=== PATIENT | male | born 1945 | race Caucasian/White ===

== ENCOUNTER 2020-10-17 07:52 | Day surgery (SDC) | payer OTHER ==
[~2020-10-17 07:52] MED LIST: Lactated Ringers 1,000 ML IV SCH; Sodium Chloride 0.9% 10 ML SDV IV PRN; Sodium Chloride 0.9% 10 ML Syringe FLUSH PRN; Sodium Chloride 0.9% 2.5 ML Syringe FLUSH PRN
--- NOTE | 2020-10-17 09:32 | PCM.PREANE ---
Preanesthetic Assessment - Anesthesia/Transfusion/Family Hx Anesthesia History: Prior Anesthesia Without Reaction Family History of Anesthesia Reaction: No Transfusion History: No Prior Transfusion(s) - Review of Systems General: No Symptoms Pulmonary: No Symptoms Cardiovascular: No Symptoms Gastrointestinal: No Symptoms Neurological: No Symptoms Other: Reports: None - Physical Assessment NPO Status Date: 10/17/20 NPO Status Time: 00:01 Vital Signs: Last Vital Signs Temp 97.2 F 10/17/20 08:50 Pulse 63 10/17/20 08:50 Resp 15 10/17/20 08:50 BP 150/78 H 10/17/20 08:50 Pulse Ox 98 10/17/20 08:50 Height: 5 ft 10 in Weight: 246 lb ASA Class: 2 Mental Status: Alert & Oriented x3 Airway Class: Mallampati = 2 Dentition: Reports: Normal Dentition ROM/Head Extension: Full Lungs: Clear to Auscultation, Normal Respiratory Effort Cardiovascular: Regular Rate, Regular Rhythm - Lab Values: Laboratory Last Values SARS-CoV-2 RNA (ERIN) NEGATIVE (NEGATIVE) 10/17/20 08:00 - Allergies Allergies/Adverse Reactions: Allergies Allergy/AdvReac Type Severity Reaction Status Date / Time No Known Allergies Allergy Verified 10/11/20 12:10 - Anesthesia Plan Pre-Op Medication Ordered: None - Acknowledgements Anesthesia Type Planned: General Anesthesia Pt an Appropriate Candidate for the Planned Anesthesia: Yes Alternatives and Risks of Anesthesia Discussed w Pt/Guardian: Yes Pt/Guardian Understands and Agrees with Anesthesia Plan: Yes Additional Comments: npo obesity bmi 35 tob none etoh rare prostate CA s/p radical prostatectomy 2010 neck pain with mukul n/t/occ weakness no cv problems par no questions PreAnesthesia Questionnaire Other HEENT History: wears glasses, has upper permanent bridge Cardiovascular History: Reports: None Respiratory History: Reports: None Gastrointestinal History: Reports: Diverticulosis, GERD Genitourinary History: Reports: Prostate Disorder Other Genitourinary History: hx of prostate cancer Musculoskeletal History: Reports: Back Pain, Chronic, Fracture, Neck Pain, Chronic Other Musculoskeletal History: hx of fx left foot and right fibula Neurological History: Reports: None Psychiatric History: Reports: None Endocrine/Metabolic History: Reports: Obesity/BMI 30+ Hematologic History: Reports: None Immunologic History: Reports: None Oncologic (Cancer) History: Reports: Prostate Dermatologic History: Reports: None - Past Surgical History Head Surgeries/Procedures: Reports: None Cardiovascular Surgical History: Reports: None Respiratory Surgical History: Reports: None GI Surgical History: Reports: Appendectomy, Colonoscopy Male Surgical History: Reports: Prostatectomy Endocrine Surgical History: Reports: None Neurological Surgical History: Reports: None Musculoskeletal Surgical History: Reports: ORIF, Other (See Below) Other Musculoskeletal Surgeries/Procedures:: Left Hip: "[place] hip resurfacing", ORIF left foot- has plate and screws Oncologic Surgical History: Reports: Other (See Below) Other Oncologic Surgeries/Procedures: Prostatectomy Dermatological Surgical History: Reports: None - SUBSTANCE USE Tobacco Use Status *Q: Never Tobacco User Recreational Drug Use History: No - HOME MEDS Home Medications: Home Meds Bicalutamide [Casodex] 50 mg PO TID 03/08/15 [History] Megestrol Acetate 20 mg PO DAILY 03/08/15 [History] Leuprolide Acetate [Eligard] 1 injection SUBCUT ASDIRECTED 07/16/16 [History] Multivitamin [Multivitamins] 1 tab PO DAILY 07/16/16 [History] Orasal 5 ml PO TIDMEALS 10/11/20 [History] - CURRENT (IN HOUSE) MEDS Current Meds: Current Medications Lactated Ringer's (Ringers, Lactated) 1,000 mls @ 125 mls/hr IV ASDIRECTED SHELL Sodium Chloride (Sodium Chloride 0.9% 10 Ml Syringe) 10 ml FLUSH ASDIRECTED PRN PRN Reason: Keep Vein Open Sodium Chloride (Sodium Chloride 0.9% 2.5 Ml Syringe) 2.5 ml FLUSH ASDIRECTED PRN PRN Reason: Keep Vein Open Sodium Chloride (Sodium Chloride 0.9% 10 Ml Syringe) 10 ml FLUSH ASDIRECTED PRN PRN Reason: Keep Vein Open Sodium Chloride (Sodium Chloride 0.9% 2.5 Ml Syringe) 2.5 ml FLUSH ASDIRECTED PRN PRN Reason: Keep Vein Open Sodium Chloride (Sodium Chloride 0.9% 10 Ml Sdv) 10 ml IV ASDIRECTED PRN PRN Reason: IV Use
[2020-10-17] MEDS ORDERED: Propofol 200 MG/20 ML SDV ONE ×2 (09:42→10:36)
--- NOTE | 2020-10-17 10:58 | PCM.OPNOTE ---
- General Post-Op/Procedure Note Date of Surgery/Procedure: 10/17/20 Operative Procedure(s): Screening colonoscopy with polypectomy Findings: cecal, ascending colon, and rectal polyp. Diverticulosis of sigmoid colon Pre Op Diagnosis: History of diverticulosis Post-Op Diagnosis: Sigmoid diverticulosis, ascending colon polyp, cecal polyp, rectal polyp [place]est[place] [facility] [place] Surgeon: Kalyn Garcia Condition: Good
--- NOTE | 2020-10-17 11:10 | PCM.POSTAN ---
POST ANESTHESIA ASSESSMENT - MENTAL STATUS Mental Status: Alert (no anesthetic problems), Oriented - VITAL SIGNS Vital Signs: Last Vital Signs Temp 97.5 F 10/17/20 10:45 Pulse 62 10/17/20 11:00 Resp 15 10/17/20 11:00 BP 125/66 10/17/20 11:00 Pulse Ox 95 10/17/20 11:00 - RESPIRATORY Respiratory Status: Respiratory Rate WNL, Airway Patent, O2 Saturation Stable - CARDIOVASCULAR CV Status: Pulse Rate WNL, Blood Pressure Stable - GASTROINTESTINAL GI Status: No Symptoms - POST OP HYDRATION Hydration Status: Adequate & Stable
[2020-10-17 11:15] VITALS: BP 129/76; PULSE 58
--- NOTE | 2020-10-17 12:57 | PCM48HPAN ---
Post Anesthesia Note - EVALUATION WITHIN 48HRS OF ANESTHETIC Vital Signs in Normal Range: Yes Patient Participated in Evaluation: Yes Respiratory Function Stable: Yes Airway Patent: Yes Cardiovascular Function Stable: Yes Hydration Status Stable: Yes Pain Control Satisfactory: Yes Nausea and Vomiting Control Satisfactory: Yes Mental Status Recovered: Yes Vital Signs: Last Vital Signs Temp 97.2 F 10/17/20 11:07 Pulse 58 L 10/17/20 11:07 Resp 14 10/17/20 11:07 BP 129/76 10/17/20 11:07 Pulse Ox 97 10/17/20 11:07
--- NOTE | 2020-10-19 14:09 | OR ---
SURGEON: KALYN GARCIA MD DATE OF PROCEDURE: 10/17/2020 PREOPERATIVE DIAGNOSIS: Screening colonoscopy, history of diverticulosis. POSTOPERATIVE DIAGNOSES: 1. Ascending colon polyp. 2. Cecal polyp. 3. Rectal polyp. 4. Diverticulosis of the sigmoid colon. PROCEDURE PERFORMED: Screening colonoscopy with polypectomy. PRIMARY SURGEON: Kalyn Garcia MD. ANESTHESIA: MAC. INSTRUMENT USED: Olympus colonoscope. EXTENT OF EXAM: To the cecum. PREPARATION: Good. LIMITATIONS: None. INDICATIONS FOR EXAMINATION: The patient is a 75-year-old male who presents for a screening colonoscopy. He had one 10 years ago and was found to have diverticulosis. I explained the procedure, expected perioperative course, and the risks. He verbalized understanding and wishes to proceed. PROCEDURE IN DETAIL: The patient was brought to the endoscopy suite and placed in the left lateral decubitus position. A time-out was completed verifying the patient's name, age, date of , allergies, and procedure to be performed. Monitored anesthesia care was induced and continuous oxygen was provided via nasal cannula throughout the procedure. After adequate sedation was achieved, a digital rectal exam was performed. This exam was within normal limits. A well-lubricated colonoscope was inserted in the rectum and advanced under direct visualization to the level of the cecum. The cecum was identified by both visual and anatomic landmarks. A photograph was taken of the cecal cap. However, I was unable to retroflex the scope within the cecum due to looping of the scope more proximally. The scope was then fully withdrawn while examining the color, texture, anatomy, and integrity of the mucosa from the cecum to the anal canal. The patient was noted to have 3 small sessile polyps during the exam; there was one in the cecal cap, one in the ascending colon, and one in the rectum. These were all removed in piecemeal fashion using a cold biopsy forceps and sent to pathology, labeled based on my location. The patient was noted to have diverticulosis within the sigmoid colon as well. The scope was then brought into the rectum and retroflexed to allow visualization of the anal canal opening. This appeared normal and a photograph was taken. The scope was straightened out and fully withdrawn. The cecum to anus time was greater than 6 minutes. He tolerated the procedure well and was transferred to the PACU in stable condition. ENDOSCOPIC DIAGNOSES: 1. Ascending colon polyp. 2. Cecal polyp. 3. Rectal polyp. 4. Diverticulosis of the sigmoid colon. RECOMMENDATIONS: Follow up in clinic in 2 weeks. LAUREL VILLAREAL /[id number]
== END 2020-10-17 11:35 | disposition home or self-care (01) ==
LOC: MW.SDS 07:52
PROVIDERS: ATTEND Surgery
DX: Z12.11 Encounter for screening for malignant neoplasm of colon (principal); D12.0 Benign neoplasm of cecum; D12.2 Benign neoplasm of ascending colon; D12.8 Benign neoplasm of rectum; K57.30 Diverticulosis of large intestine without perforation or abscess without bleeding; E66.9 Obesity, unspecified; Z68.35 Body mass index [BMI] 35.0-35.9, adult; Z85.46 Personal history of malignant neoplasm of prostate; Z01.812 Encounter for preprocedural laboratory examination; Z20.822 Contact with and (suspected) exposure to COVID-19
CPT/HCPCS: 45380; 87635; J2704; J7120; 00812; 88305; U0002

== ENCOUNTER 2023-06-03 16:23 | Emergency (ER) | payer OTHER, MEDICARE ==
[2023-06-03] MEDS ORDERED: Diphtheria,Pertussis(Acell),Tetanus Vaccine 0.5 ML Syringe IM ONE (17:16)
[2023-06-03 19:30] VITALS: BP 145/82; PULSE 67
== END 2023-06-03 19:29 | disposition home or self-care (01) ==
LOC: MW.ED 16:23
DX: S02.2XXA Fracture of nasal bones, initial encounter for closed fracture (principal); S00.83XA Contusion of other part of head, initial encounter; E66.9 Obesity, unspecified; Z90.49 Acquired absence of other specified parts of digestive tract; Z68.29 Body mass index [BMI] 29.0-29.9, adult; Z79.899 Other long term (current) drug therapy; Z23 Encounter for immunization; W01.198A Fall on same level from slipping, tripping and stumbling with subsequent striking against other object, initial encounter; Y93.01 Activity, walking, marching and hiking; Y92.009 Unspecified place in unspecified non-institutional (private) residence as the place of occurrence of the external cause
CPT/HCPCS: 70450; 70450-26; 70486; 70486-26; 90471; 90715; 99283; 99283-25

== ENCOUNTER 2025-03-22 18:47 | Emergency (ER) | payer OTHER, MEDICARE ==
[2025-03-22] MEDS ORDERED: Sodium Chloride 0.9% 2.5 ML Syringe FLUSH PRN (19:20)
[2025-03-22] MEDS ORDERED: Sodium Chloride 0.9% 10 ML Syringe FLUSH PRN (19:20)
[2025-03-22 19:36] LABS: BASOPHILS ABSOLUTE AUTO 0.04 K/uL (0.00-0.20); BASOPHILS PERCENT AUTO 0.7 % (0.0-1.0); EOSINOPHILS ABSOLUTE AUTO 0.13 K/uL (0.00-0.45); EOSINOPHILS PERCENT AUTO 2.1 % (0.0-6.0); IMMATURE GRAN ABSOLUTE AUTO 0.01 K/uL (0.00-0.05); IMMATURE GRAN PERCENT AUTO 0.2 % (0.0-0.4); LYMPHOCYTES ABSOLUTE AUTO 1.12 K/uL (1.00-4.80); LYMPHOCYTES PERCENT AUTO 18.4 % (24.0-44.0); MEAN PLATELET VOLUME 10.4 fL (9.4-12.4); MONOCYTES ABSOLUTE AUTO 0.69 K/uL (0.00-0.80); MONOCYTES PERCENT AUTO 11.3 % (0.0-8.0); NEUTROPHILS ABSOLUTE AUTO 4.09 K/uL (1.80-7.70); NEUTROPHILS PERCENT AUTO 67.3 % (41.0-71.0); NRBC ABSOLUTE 0.00 K/uL (0.00-0.02); NRBC PERCENT 0.0 /100WBC (0.0-0.2); PLATELET COUNT,PLT 213 K/uL (150-400); RED BLOOD CELL COUNT 4.64 M/uL (4.52-5.90); WHITE BLOOD CELL COUNT,WBC 6.08 K/uL (3.9-11.3)
[2025-03-22] MEDS: Ondansetron 4 MG/2 ML SDV IVPUSH ONE (20:05)
[2025-03-22 20:08] LABS: A/G RATIO 1.2 (0.9-1.6); ALANINE AMINOTRANSFERASE,ALT 23 IU/L (14-63); ASPARTATE AMNIOTRANSFERASE,AST 22 IU/L (15-37); BILIRUBIN TOTAL 0.4 mg/dL (0.2-1.0); BLOOD UREA NITROGEN,BUN 33 mg/dL (7.0-18.0); CARBON DIOXIDE,CO2 28.9 mmol/L (21.0-32.0); CHLORIDE,CL 107 mmol/L (98-107); CREATININE 1.2 mg/dL (0.8-1.3); GLUCOSE RANDOM 115 mg/dL (74-106); POTASSIUM,K 3.8 mmol/L (3.5-5.1); PROTEIN TOTAL,TP 7.2 g/dL (6.4-8.2); SODIUM,NA 142 mmol/L (136-148)
[2025-03-22 20:09] LABS: ESTIMATED GFR 62 mL/min (>60)
[2025-03-22] MEDS: Iopamidol 755 MG/ML 500 ML Multipack Bottle IVPUSH STA (20:25)
[2025-03-22 20:26] LABS: PRO B-TYPE NATRIUR PEPT,BNPPRO 152.0 pg/mL (0-450)
[2025-03-22 21:07] LABS: APPEARANCE,URINE CLEAR; GLUCOSE,URINE NEGATIVE (NEGATIVE); OCCULT BLOOD,URINE NEGATIVE (NEGATIVE)
[2025-03-22 21:57] VITALS: BP 144/71; PULSE 66
[2025-03-22 22:11] LABS: CHOLESTEROL HDL 63.0 mg/dL (40-60); CHOLESTEROL LDL CALCULATED 117.0 mg/dL (60-180); CHOLESTEROL TOTAL 206.0 mg/dL (50-200); VLDL CHOLESTEROL 26.0 mg/dL (5-55)
== END 2025-03-22 22:07 | disposition home or self-care (01) ==
LOC: MW.ED 18:47
DX: R42 Dizziness and giddiness (principal); R11.2 Nausea with vomiting, unspecified; M54.2 Cervicalgia; R03.0 Elevated blood-pressure reading, without diagnosis of hypertension; E66.9 Obesity, unspecified; Z86.69 Personal history of other diseases of the nervous system and sense organs; Z85.46 Personal history of malignant neoplasm of prostate; Z79.899 Other long term (current) drug therapy; Z90.49 Acquired absence of other specified parts of digestive tract
CPT/HCPCS: 36415; 70450; 70496; 70498; 80053; 80061; 81003; 83735; 83880; 84484; 85025; 93005; 96361; 96374; 99284; A9270; J2405; J7030; Q9967